=== PATIENT | male | born 1955 | race Hispanic/Latino ===

== ENCOUNTER 2018-01-13 09:24 | Day surgery (SDC) | payer MEDICARE ==
[2018-01-11 10:47] VITALS: BP 144/83
[2018-01-11 10:58] LABS: APPEARANCE,URINE Clear (CLEAR); BASOPHILS % (AUTO) 0.4 % (0.0-5.0); BILIRUBIN,URINE Negative (NEGATIVE); COLOR,URINE Yellow (YELLOW); EOSINOPHILS % (AUTO) 2.3 % (0.0-8.0); GLUCOSE, URINE (UA) >=1000 mg/dL (NEGATIVE); HEMATOCRIT 36.1 % (42-54); KETONES,URINE Negative (NEGATIVE); LEUKOCYTE ESTERASE ,URINE Negative (NEGATIVE); LYMPHOCYTES % (AUTO) 23.4 % (21.0-51.0); MEAN CORPUSCULAR HEMOGLOBIN 27.2 pg (27.0-33.0); MEAN CORPUSCULAR HGB CONC 32.8 g/dL (32.0-36.0); MEAN CORPUSCULAR VOLUME 82.7 fL (79-99); MONOCYTES % (AUTO) 6.7 % (3.0-13.0); NEUTROPHILS % (AUTO) 67.2 % (40.0-77.0); NITRATE,URINE Negative (NEGATIVE); OCCULT BLOOD,URINE Negative (NEGATIVE); PLATELET COUNT (AUTO) 206 K/uL (130-400); PROTEIN,URINE Negative (NEGATIVE); RED BLOOD CELL COUNT(AUTO) 4.36 MIL/uL (4.50-6.20); RED CELL DISTRIBUTION WIDTH 14.2 % (11.0-15.5); WHITE BLOOD COUNT (AUTO) 8.3 K/uL (4.8-10.8)
[2018-01-11 11:13] LABS: POTASSIUM 4.6 mmol/L (3.5-5.1)
[2018-01-11 11:24] LABS: BACTERIA,URINE Rare /HPF (None Seen); MUCUS,URINE Few LPF (None Seen); RBC,URINE 0-1 /HPF (0-1); SQUAMOUS EPITHELIAL CELL,UR Rare /HPF (0-2); WBC,URINE 0-1 /HPF (0-1)
[2018-01-11 11:40] LABS: INR 1.02 (0.85-1.15); PARTIAL THROMBOPLASTIN TIME 26.6 SEC (26.3-35.5); PROTHROMBIN TIME 10.7 SEC (9.6-11.6)
[~2018-01-13] VITALS: Ht 170.2 cm; Wt 95.6 kg
[2018-01-13] VITALS (10 sets, daily range): BP systolic 103–131; BP diastolic 55–77
[~2018-01-13 09:24] MED LIST: ASPI-1197 PO; EXEN2PEN SQ; INSU3INS3 SQ; ISOS60TA4 PO; LISI40TA4 PO; MELO-106 PO; METO25TA6 PO; PREG75 PO; SIMV20TA6 PO; SITA1TBM4 PO
[2018-01-13] MEDS ORDERED: SODIUM CHLORIDE 0.9% 1000ML 1,000 ML IV ONE (09:40)
[2018-01-13] MEDS ORDERED: BIVALIRUDIN 250 MG/VIAL IV ONE (13:43)
[2018-01-13] MEDS ORDERED: FENTANYL CITRATE PF 50 MCG/1 ML 2ML VIAL ONE (13:44)
[2018-01-13] MEDS ORDERED: IOHEXOL 350 MG/ML 100ML INFUS..BTL IV ONE (13:44)
[2018-01-13] MEDS ORDERED: NITROGLYCERIN 5 MG/ML 10 ML VIAL IV ONE (13:44)
[2018-01-13] MEDS ORDERED: IOHEXOL-350 50ML VIAL IV ONE (13:44)
[2018-01-13] MEDS ORDERED: HEPARIN SODIUM 1000UNIT/ML 10ML VIAL ONE (13:44)
[2018-01-13] MEDS ORDERED: MIDAZOLAM HCL 1 MG/ML 2ML VIAL ONE (13:44)
[2018-01-13] MEDS ORDERED: LIDOCAINE HCL 2% 20ML ONE (13:44)
[2018-01-13] MEDS ORDERED: SODIUM CHLORIDE 0.9% 1000ML 1,000 ML IV SCH (14:29)
[2018-01-13] MEDS ORDERED: NITROGLYCERIN 0.4 MG SL TAB SL PRN (14:30)
[2018-01-13] MEDS ORDERED: DEXTROSE 50%-WATER 50 ML DISP.SYRIN IV PRN (14:30)
[2018-01-13] MEDS ORDERED: GLUCAGON 1MG KIT 1 MG ML IM PRN (14:30)
[2018-01-13] MEDS ORDERED: INSULIN HUMULIN R 100 UNIT/ML 3ML SQ SCH (16:30)
== END 2018-01-13 18:15 | disposition home or self-care (01) ==
LOC: DAH 09:24
PROVIDERS: ATTEND Internal Medicine Cardiovascular Disease
DX: I25.118 Atherosclerotic heart disease of native coronary artery with other forms of angina pectoris (principal); I10 Essential (primary) hypertension; E11.9 Type 2 diabetes mellitus without complications; E78.5 Hyperlipidemia, unspecified; Z82.49 Family history of ischemic heart disease and other diseases of the circulatory system; R06.00 Dyspnea, unspecified; Z68.34 Body mass index [BMI] 34.0-34.9, adult; Z79.899 Other long term (current) drug therapy; Z79.84 Long term (current) use of oral hypoglycemic drugs; Z79.4 Long term (current) use of insulin; Z79.01 Long term (current) use of anticoagulants; Z88.8 Allergy status to other drugs, medicaments and biological substances
CPT/HCPCS: 36415; 71045; 80048; 81001; 82948 ×3; 85025; 85610; 85730; 93005; 93458; A4606; C1894 ×2; J1644; J2250; J3010; J3490 ×2; J7030; Q9965; Q9967 ×2; 99156; 99157; J0583

== ENCOUNTER 2021-06-29 15:39 | Emergency (ER) | payer MEDICARE ==
[~2021-06-29] VITALS: Ht 170.2 cm; Wt 83.9 kg
[~2021-06-29 15:39] MED LIST changes: -ISOS60TA4 PO; +ISOS60TA77 PO; -LISI40TA4 PO; +LISI40TA9 PO; +SIMV-43 PO; -SIMV20TA6 PO
[2021-06-29 16:01] LABS: BASOPHILS % (AUTO) 0.1 % (0.0-5.0); HEMATOCRIT 39.3 % (42-54); LYMPHOCYTES % (AUTO) 11.4 % (21.0-51.0); MEAN CORPUSCULAR HEMOGLOBIN 30.4 pg (27.0-33.0); MEAN CORPUSCULAR HGB CONC 34.1 g/dL (32.0-36.0); MEAN CORPUSCULAR VOLUME 89.1 fL (79-99); MONOCYTES % (AUTO) 3.4 % (3.0-13.0); NEUTROPHILS % (AUTO) 84.4 % (40.0-77.0); PLATELET COUNT (AUTO) 221 K/uL (130-400); RED BLOOD CELL COUNT(AUTO) 4.41 MIL/uL (4.50-6.20); RED CELL DISTRIBUTION WIDTH 12.8 % (11.0-15.5); WHITE BLOOD COUNT (AUTO) 15.8 K/uL (4.8-10.8)
[2021-06-29 16:20] LABS: BILIRUBIN,TOTAL 0.4 mg/dL (0.2-1.0); CREATININE 1.5 mg/dL (0.5-1.5); POTASSIUM 5.1 mmol/L (3.5-5.1); TOTAL PROTEIN, SERUM 7.9 g/dL (6.0-8.3)
[2021-06-29 16:26] LABS: APPEARANCE,URINE Clear (CLEAR); BILIRUBIN,URINE Negative (NEGATIVE); COLOR,URINE Yellow (YELLOW); GLUCOSE, URINE (UA) >=1000 mg/dL (NEGATIVE); KETONES,URINE Trace mg/dL (NEGATIVE); LEUKOCYTE ESTERASE ,URINE Negative (NEGATIVE); NITRATE,URINE Negative (NEGATIVE); OCCULT BLOOD,URINE Negative (NEGATIVE); PROTEIN,URINE Negative (NEGATIVE); UROBILINOGEN,URINE 0.2 mg/dL (0.2-1.0)
[2021-06-29] MEDS ORDERED: 0.9%NACL 1000ML 1,000 ML IV ONE (16:30)
[2021-06-29] MEDS ORDERED: MORPHINE 4 MG SYG IVP ONE (16:30)
[2021-06-29] MEDS ORDERED: ONDANSETRON 4MG INJ IVP ONE (16:30)
[2021-06-29 16:35] LABS: RBC,URINE 0-1 /HPF (0-1); WBC,URINE 0-1 /HPF (0-1)
[2021-06-29 16:36] LABS: BACTERIA,URINE Rare /HPF (None Seen); SQUAMOUS EPITHELIAL CELL,UR Rare /HPF (0-2)
[2021-06-29] MEDS ORDERED: INSULIN HUMULIN R 100 UNIT/ML 3ML IV ONE (17:00)
[2021-06-29 17:55] VITALS: BP 146/88
== END 2021-06-29 18:36 | disposition home or self-care (01) ==
LOC: EDH 15:39
DX: E11.65 Type 2 diabetes mellitus with hyperglycemia (principal); M54.50 Low back pain, unspecified; E78.00 Pure hypercholesterolemia, unspecified; I10 Essential (primary) hypertension; Z88.6 Allergy status to analgesic agent; Z79.899 Other long term (current) drug therapy; Z79.4 Long term (current) use of insulin; Z79.82 Long term (current) use of aspirin; Z98.890 Other specified postprocedural states
CPT/HCPCS: 36415; 80053; 81001; 82010; 82948; 85025; 96361; 96374; 96375; 99284; J1815; J2270; J2405; J7030

== ENCOUNTER 2023-09-03 09:05 | Emergency (ER) | payer MEDICARE, OTHER ==
[~2023-09-03] VITALS: Ht 170.2 cm; Wt 85.7 kg
[2023-09-03 09:07] VITALS: BP 168/98; PULSE 84; RESP 18
[2023-09-03] MEDS: MORPHINE 4 MG SYG IM ONE (10:45)
[2023-09-03] MEDS: MORPHINE 4 MG SYG ONE (10:45)
[2023-09-03] MEDS: ORPHENADRINE 60MG/2ML IM ONE (10:54)
[2023-09-03] MEDS ORDERED: PRED20TA3 PO (12:25)
[2023-09-03] MEDS: DEXAMETHASONE SOD PHOSPHATE 4 MG/ML 1ML VIAL IM ONE (12:51)
== END 2023-09-03 13:14 | disposition home or self-care (01) ==
LOC: EDH 09:05
DX: M54.31 Sciatica, right side (principal); E11.9 Type 2 diabetes mellitus without complications; E78.00 Pure hypercholesterolemia, unspecified; I10 Essential (primary) hypertension; Z79.82 Long term (current) use of aspirin; Z79.84 Long term (current) use of oral hypoglycemic drugs; Z88.6 Allergy status to analgesic agent
CPT/HCPCS: 99285; 72131; 96372 ×3; J1100; J2270; J2360

== ENCOUNTER → 2024-05-02 | Outpatient (CLI) | payer OTHER ==
[~2024-05-02] MED LIST changes: +IOHEXOL 350 MG/ML 100ML INFUS..BTL IV ONE; +PRED20TA3 PO; +metoPROLOL tartRATE 1 MG/ML 5ML VIAL IV ONE
--- NOTE | 2024-05-02 22:33 | HMCIMG ---
CT CARDIAC ANGIO W/CONT. CCTA HISTORY: Angina COMPARISON: None TECHNIQUE: Multiple sequential axial images of the chest were obtained along with the CT angiogram of the chest study. Patient was given 100 cc of Omnipaque through intravenous route. FINDINGS: There is no evidence of pulmonary nodule or parenchymal disease. No pleural effusion or pericardial effusion is seen. There is no evidence of pneumothorax. There are normal size mediastinal and hilar lymph nodes. The heart is not enlarged. Degenerative changes of the thoracolumbar spine are present. IMPRESSION: 1. No evidence of pulmonary nodule or effusion is seen. Please see CT angiogram report of coronary arteries.
--- NOTE | 2024-05-04 14:33 | HMCSR ---
APPROVED REPORT EXAM: Two-dimensional and M-mode echocardiogram with Doppler and color Doppler. INDICATION ICD: Angina pectoris I20.9 2D Dimensions RVDd3.3 cmLVEF(%)50.7 (>50%)LVED Vol(simp.)108.9 mL IVSd1.0 (0.7-1.1cm)FS(%)26 %LVES Vol(simp.)65.5 mL LVDd4.2 (3.8-5.6cm)LA (2D)4.0 (1.6-4.0cm)LVEF(%, simp.)40 % PWd1.1 (0.7-1.1cm)Ao Root(2D)3.0 (2.0-3.7cm)LA ESV INDEX (BP)22.40 mL/m2 LVDs3.2 (2.5-4.0cm)LVOT diam1.7 (1.8-2.4cm) IVC diam1.8 cm M-Mode Dimensions LA (MM)3.9 (1.6-4.0cm) Ao Root(MM)3.0 (2.0-3.7cm) Aortic Valve AoV Vmax1.3 m/Lit Peak GR6.8 mmHgLVOT Vmax0.7 m/s AoV VTI0.3 mAo Mean GR3.7 mmHgLVOT VTI0.17 m JOSUE (VMAX)1.4 cm2AVA (VTI) 1.4 cm2 Mitral Valve MV E Vmax83.7 cm/sDECEL Vdjn280 ms MV A Vmax70.8 cm/sP 1/2 T48 ms E/A ratio1.2MVA (PHT)4.6 cm2 TDI E/E' [id number] Left Ventricle The left ventricle is normal size. Mild global hypokinesis There is normal left ventricular wall thic kness. LVEF is 40-45% Grade 2 diastolic dysfunction Right Ventricle The right ventricle is normal size. Right ventricular systolic function is mildly reduced. Atria The left atrium size is normal. The right atrium size is normal. Aortic Valve The aortic valve is normal in structure. No aortic regurgitation is present. There is no aortic valvu lar stenosis. Mitral Valve The mitral valve is normal in structure. There is no mitral valve regurgitation noted. There is no mi tral valve stenosis. Tricuspid Valve The tricuspid valve is normal in structure. There is no tricuspid valve regurgitation noted. Pulmonic Valve The pulmonary valve is normal in structure. There is no pulmonic valvular regurgitation. Great Vessels The aortic root is normal in size. The IVC is normal in size and collapses <50% with inspiration. Pericardium There is no pericardial effusion. Conclusion LVEF is 40-45% Grade 2 diastolic dysfunction Mild global hypokinesis
== END | disposition home or self-care (01) ==
LOC: RAH 08:43
PROVIDERS: ATTEND Internal Medicine Cardiovascular Disease
DX: I20.9 Angina pectoris, unspecified (principal); M47.815 Spondylosis without myelopathy or radiculopathy, thoracolumbar region
CPT/HCPCS: 93306; 75574; J3490 ×2; Q9967

== ENCOUNTER → 2024-05-10 | Outpatient (CLI) | payer OTHER ==
[~2024-05-10] MED LIST changes: -IOHEXOL 350 MG/ML 100ML INFUS..BTL IV ONE; -metoPROLOL tartRATE 1 MG/ML 5ML VIAL IV ONE
[2024-05-10 13:05] LABS: CREATININE 1.8 mg/dL (0.5-1.3); POTASSIUM 5.7 mmol/L (3.5-5.1)
== END | disposition home or self-care (01) ==
LOC: LAB 10:32
PROVIDERS: ATTEND Physician Assistant
DX: I20.9 Angina pectoris, unspecified (principal)
CPT/HCPCS: 36415; 80048

== ENCOUNTER → 2024-05-28 | Outpatient (CLI) | payer OTHER | END | disposition home or self-care (01) | LOC: LAB 13:34 | PROVIDERS: ATTEND Internal Medicine Cardiovascular Disease | DX: I10 Essential (primary) hypertension (principal) | CPT/HCPCS: 36415; 84132 ==